=== PATIENT | male | born 1950 | race Caucasian/White ===

== ENCOUNTER 2021-02-19 11:57 | Inpatient (IN) ==
[2021-02-19 12:31] LABS: Hematocrit 37 % (42-52); Mean Corpuscular HGB Conc 33 g/dL (31-36); Mean Corpuscular Hemoglobin 31 pg (27-31); Mean Corpuscular Volume 94 fL (80-94); Mean Platelet Volume 7.4 fL (7.4-10.4); Platelet Count 405 10^3/uL (150-450); Red Blood Count 3.89 10^6 /uL (4.18-5.48); Red Cell Distribution Width 14 % (10-15); White Blood Count 23.2 10^3/uL (3.5-10.8)
[2021-02-19] MEDS ORDERED: Azithromycin 500 mg/250 ml NS 500 MG/250 ML BAG IVPB ONE (12:35)
[2021-02-19] MEDS ORDERED: cefTRIAXone 1 gm/50 mL NS BAG 1 GM/50 ML BAG IV ONE (12:35)
[2021-02-19] MEDS ORDERED: NS 0.9% 1000 ml BAG 1,000 ML IV ONE (12:36)
[2021-02-19 12:38] LABS: ABS Basophils 0.1 10^3/ul (0-0.2); ABS Lymphocytes 0.7 10^3/ul (1.0-4.8); ABS Monocytes 1.1 10^3/ul (0-0.8); ABS Neutrophils 21.3 10^3/ul (1.5-7.7); Eosinophil % 0.1 %; Lymphocyte % 2.9 %
[2021-02-19 12:43] LABS: INR 1.26 (0.82-1.09)
[2021-02-19 12:49] LABS: ALT 14 U/L (7-52); Albumin 3.3 g/dL (3.2-5.2); Alkaline Phosphatase 70 U/L (34-104); Blood Urea Nitrogen 27 mg/dL (6-24); C Reactive Protein 38.82 mg/L (<8.01); CO2 Carbon Dioxide 24 mmol/L (22-32); Calcium 8.3 mg/dL (8.6-10.3); Chloride 105 mmol/L (101-111); EGFR African American 76.8 (>60); EGFR Non-African American 63.5 (>60); Globulin 3.4 g/dL (2-4); Glucose 151 mg/dL (70-100); Sodium 135 mmol/L (135-145); Total Protein 6.7 g/dL (6.4-8.9)
[2021-02-19 12:51] LABS: Troponin I 0.17 ng/mL (<0.03)
[2021-02-19 13:14] LABS: Anion Gap 6 mmol/L (2-11)
[2021-02-19] MEDS ORDERED: Albuterol HFA INHALER 8 gm MDI INH SCH (16:00)
[2021-02-19] MEDS: LATANOPROST 0.005% BOTH EYES SCH (16:56)
[2021-02-19] MEDS: Enoxaparin 40 MG/0.4 ML SYR SUBCUT SCH (16:56)
[2021-02-19 16:58] LABS: Troponin I 0.22 ng/mL (<0.03)
[2021-02-19 17:32] LABS: AST Redraw 12 U/L (13-39); Potassium Redraw 4.3 mmol/L (3.5-5.0)
[2021-02-19] MEDS: Albuterol HFA INHALER 8 gm MDI INH SCH (19:11)
[2021-02-19 20:17] LABS: Troponin I 0.18 ng/mL (<0.03)
[2021-02-19] MEDS: Venlafaxine XR 75 mg PO SCH (21:36)
[2021-02-19] MEDS: Fluticasone NASAL SPRAY 50MCG 16 gm SPRAY BTL INTRANASAL SCH (21:38)
[2021-02-19 22:57] LABS: Troponin I 0.16 ng/mL (<0.03)
[2021-02-20 01:20] LABS: Urine Appearance Clear; Urine Bilirubin Negative (Negative); Urine Blood Negative (Negative); Urine Color Yellow; Urine Glucose Negative (Negative); Urine Ketones Negative (Negative); Urine Nitrite Negative (Negative); Urine Protein Negative (Negative); Urine Specific Gravity 1.028 (1.002-1.030); Urine Urobilinogen Negative (Negative)
[2021-02-20 06:29] LABS: ABS Basophils 0.1 10^3/ul (0-0.2); ABS Eosinophils 0.5 10^3/ul (0-0.6); ABS Lymphocytes 1.3 10^3/ul (1.0-4.8); ABS Neutrophils 11.5 10^3/ul (1.5-7.7); Eosinophil % 3.4 %; Hematocrit 34 % (42-52); Hemoglobin 11.2 g/dL (14.0-18.0); Lymphocyte % 9.2 %; Mean Corpuscular HGB Conc 33 g/dL (31-36); Mean Corpuscular Hemoglobin 31 pg (27-31); Mean Corpuscular Volume 95 fL (80-94); Mean Platelet Volume 7.9 fL (7.4-10.4); Platelet Count 353 10^3/uL (150-450); Red Blood Count 3.61 10^6 /uL (4.18-5.48); Red Cell Distribution Width 14 % (10-15); White Blood Count 14.4 10^3/uL (3.5-10.8)
[2021-02-20] MEDS: Albuterol HFA INHALER 8 gm MDI INH SCH ×2 (06:34→07:52)
[2021-02-20 06:51] LABS: Albumin 3.2 g/dL (3.2-5.2); Calcium 8.4 mg/dL (8.6-10.3); EGFR Non-African American 79.3 (>60); Globulin 3.1 g/dL (2-4); Potassium 4.1 mmol/L (3.5-5.0); Total Bilirubin 0.5 mg/dL (0.2-1.0); Total Protein 6.3 g/dL (6.4-8.9)
[2021-02-20] MEDS ORDERED: Albuterol HFA INHALER 8 gm MDI INH PRN (07:56)
[2021-02-20] MEDS: Aspirin EC 81 mg TAB.EC (enteric coated) PO SCH (08:30)
[2021-02-20] MEDS: Fluticasone NASAL SPRAY 50MCG 16 gm SPRAY BTL INTRANASAL SCH ×2 (08:30→20:36)
[2021-02-20] MEDS: Venlafaxine XR 75 mg PO SCH ×2 (08:30→20:35)
[2021-02-20] MEDS: cefTRIAXone 1 gm/50 mL NS BAG 1 GM/50 ML BAG IVPB SCH (13:19)
[2021-02-20] MEDS: Enoxaparin 40 MG/0.4 ML SYR SUBCUT SCH (16:40)
[2021-02-20] MEDS: LATANOPROST 0.005% BOTH EYES SCH (16:40)
[2021-02-21 07:23] LABS: ABS Basophils 0.1 10^3/ul (0-0.2); ABS Eosinophils 0.8 10^3/ul (0-0.6); ABS Monocytes 0.8 10^3/ul (0-0.8); ABS Neutrophils 6.6 10^3/ul (1.5-7.7); Eosinophil % 8.6 %; Hematocrit 32 % (42-52); Hemoglobin 11.1 g/dL (14.0-18.0); Lymphocyte % 11.3 %; Mean Corpuscular HGB Conc 34 g/dL (31-36); Mean Corpuscular Hemoglobin 32 pg (27-31); Mean Corpuscular Volume 93 fL (80-94); Mean Platelet Volume 7.6 fL (7.4-10.4); Platelet Count 338 10^3/uL (150-450); Red Blood Count 3.48 10^6 /uL (4.18-5.48); Red Cell Distribution Width 14 % (10-15); White Blood Count 9.3 10^3/uL (3.5-10.8)
[2021-02-21] MEDS: Aspirin EC 81 mg TAB.EC (enteric coated) PO SCH (08:53)
[2021-02-21] MEDS: Fluticasone NASAL SPRAY 50MCG 16 gm SPRAY BTL INTRANASAL SCH ×2 (08:54→20:03)
[2021-02-21] MEDS: Venlafaxine XR 75 mg PO SCH ×2 (08:55→20:04)
[2021-02-21] MEDS ORDERED: Perflutren Lipid Microsphere 3 ML VIAL ONE (09:22)
[2021-02-21] MEDS: cefTRIAXone 1 gm/50 mL NS BAG 1 GM/50 ML BAG IVPB SCH (14:07)
[2021-02-21] MEDS: Enoxaparin 40 MG/0.4 ML SYR SUBCUT SCH (17:46)
[2021-02-21] MEDS: LATANOPROST 0.005% BOTH EYES SCH (17:47)
[2021-02-22 08:06] VITALS: BP 154/63
[2021-02-22] MEDS: Venlafaxine XR 75 mg PO SCH (09:54)
[2021-02-22] MEDS: Aspirin EC 81 mg TAB.EC (enteric coated) PO SCH (09:54)
[2021-02-22] MEDS: Fluticasone NASAL SPRAY 50MCG 16 gm SPRAY BTL INTRANASAL SCH (09:55)
== END 2021-02-22 12:35 | disposition home or self-care (01) | DRG 720 ==
LOC: ED 11:57 → MED 15:21
PROVIDERS: ADMIT Internal Medicine; ATTEND Internal Medicine

== ENCOUNTER 2021-10-02 13:54 | Inpatient (IN) ==
[2021-10-02 15:04] LABS: Venous Bicarbonate HCO3 26.9 mmol/L (24-28)
[2021-10-02 15:09] LABS: ABS Lymphocytes 0.3 10^3/ul (1.0-4.8); ABS Monocytes 0.4 10^3/ul (0-0.8); ABS Neutrophils 10.3 10^3/ul (1.5-7.7); Eosinophil % 0.4 %; Hematocrit 34 % (42-52); Hemoglobin 11.4 g/dL (14.0-18.0); Lymphocyte % 2.4 %; Mean Corpuscular HGB Conc 33 g/dL (31-36); Mean Corpuscular Hemoglobin 31 pg (27-31); Mean Corpuscular Volume 93 fL (80-94); Mean Platelet Volume 7.4 fL (7.4-10.4); Platelet Count 269 10^3/uL (150-450); Red Blood Count 3.68 10^6 /uL (4.18-5.48); Red Cell Distribution Width 14 % (10-15); White Blood Count 11.1 10^3/uL (3.5-10.8)
[2021-10-02 15:19] LABS: Activated Partial Thrombo Time 38.2 seconds (26.0-38.0); INR 1.25 (0.86-1.15)
[2021-10-02 15:33] LABS: Troponin I 0.01 ng/mL (<0.03)
[2021-10-02] MEDS ORDERED: Dexamethasone IV 4 MG/ML VIAL 1 ml VIAL IV SLOW PU ONE (15:37)
[2021-10-02 15:38] LABS: Albumin 3.5 g/dL (3.2-5.2); Albumin/Globulin Ratio 1.2 (1-3); C Reactive Protein 51.93 mg/L (<8.01); Calcium 8.3 mg/dL (8.6-10.3); Potassium 3.3 mmol/L (3.5-5.0); Total Bilirubin 0.9 mg/dL (0.2-1.0); Total Protein 6.5 g/dL (6.4-8.9); eGFR CKD-EPI 61.6 (>60)
[2021-10-02] MEDS ORDERED: Iohexol 350 (CONTRAST) 500 ML MDV IV ONE ×2 (16:22→17:43)
[2021-10-02 16:33] LABS: Ferritin 65.6 ng/mL (24-336)
[2021-10-02] MEDS ORDERED: Furosemide 20 mg/2 ml IV VIAL IV SLOW PU ONE (18:46)
[2021-10-02] MEDS ORDERED: Remdesivir 100 mg Vial 200 MG in NS 0.9% 250 ml 210 ML IV ONE (19:26)
[2021-10-02] MEDS: Potassium Chlor 20 meq TAB.ER PO SCH ×2 (19:27→23:14)
[2021-10-02] MEDS ORDERED: Albuterol HFA INHALER 8 gm MDI INH PRN (19:27)
[2021-10-02] MEDS ORDERED: Venlafaxine XR 75 mg PO SCH (21:30)
[2021-10-02] MEDS: Enoxaparin 40 MG/0.4 ML SYR SUBCUT SCH (21:45)
[2021-10-02 22:54] LABS: Troponin I 0.03 ng/mL (<0.03)
[2021-10-03] MEDS: Potassium Chlor 20 meq TAB.ER PO SCH (03:31)
[2021-10-03 06:19] LABS: ABS Basophils 0.1 10^3/ul (0-0.2); ABS Lymphocytes 0.6 10^3/ul (1.0-4.8); ABS Monocytes 0.6 10^3/ul (0-0.8); ABS Neutrophils 14.7 10^3/ul (1.5-7.7); Hematocrit 34 % (42-52); Hemoglobin 11.4 g/dL (14.0-18.0); Mean Corpuscular HGB Conc 34 g/dL (31-36); Mean Corpuscular Hemoglobin 32 pg (27-31); Mean Corpuscular Volume 94 fL (80-94); Mean Platelet Volume 7.6 fL (7.4-10.4); Platelet Count 274 10^3/uL (150-450); Red Blood Count 3.61 10^6 /uL (4.18-5.48); Red Cell Distribution Width 14 % (10-15)
[2021-10-03 06:34] LABS: INR 1.42 (0.86-1.15)
[2021-10-03 06:39] LABS: Albumin 3.6 g/dL (3.2-5.2); Anion Gap 8 mmol/L (2-11); CO2 Carbon Dioxide 27 mmol/L (22-32); Calcium 8.9 mg/dL (8.6-10.3); Chloride 102 mmol/L (101-111); Potassium 3.8 mmol/L (3.5-5.0); Sodium 137 mmol/L (135-145)
[2021-10-03 06:45] LABS: ALT 12 U/L (7-52); AST 17 U/L (13-39); Albumin/Globulin Ratio 1.2 (1-3); Alkaline Phosphatase 80 U/L (35-149); Blood Urea Nitrogen 23 mg/dL (6-24); Globulin 3.1 g/dL (2-4); Glucose 113 mg/dL (70-100); Total Protein 6.7 g/dL (6.4-8.9); eGFR CKD-EPI 64.7 (>60)
[2021-10-03] MEDS: Aspirin EC 81 mg TAB.EC (enteric coated) PO SCH (09:35)
[2021-10-03 09:37] LABS: Troponin I 0.03 ng/mL (<0.03)
[2021-10-03] MEDS: Venlafaxine XR 75 mg PO SCH (09:44)
[2021-10-03] MEDS: Dexamethasone IV 4 MG/ML VIAL 1 ml VIAL IV SLOW PU SCH (09:45)
[2021-10-03 10:49] LABS: Troponin I 0.03 ng/mL (<0.03)
[2021-10-03] MEDS: Ondansetron 4 mg VIAL 2 MG/ML 2 ml VIAL IV PRN ×2 (13:55→20:36)
[2021-10-03] MEDS: Enoxaparin 40 MG/0.4 ML SYR SUBCUT SCH (20:34)
[2021-10-03] MEDS: Remdesivir 100 mg Vial 100 MG in NS 0.9% 250 ml 230 ML IV SCH (20:36)
[2021-10-04 06:34] LABS: ABS Lymphocytes 0.8 10^3/ul (1.0-4.8); ABS Monocytes 0.7 10^3/ul (0-0.8); ABS Neutrophils 8.7 10^3/ul (1.5-7.7); Hematocrit 34 % (42-52); Hemoglobin 11.5 g/dL (14.0-18.0); Lymphocyte % 7.6 %; Mean Corpuscular HGB Conc 34 g/dL (31-36); Mean Corpuscular Hemoglobin 32 pg (27-31); Mean Corpuscular Volume 94 fL (80-94); Mean Platelet Volume 7.6 fL (7.4-10.4); Platelet Count 301 10^3/uL (150-450); Red Cell Distribution Width 14 % (10-15); White Blood Count 10.1 10^3/uL (3.5-10.8)
[2021-10-04 06:47] LABS: INR 1.27 (0.86-1.15)
[2021-10-04 06:51] LABS: Albumin 3.5 g/dL (3.2-5.2); Albumin/Globulin Ratio 1.1 (1-3); Calcium 8.8 mg/dL (8.6-10.3); Globulin 3.2 g/dL (2-4); Potassium 3.6 mmol/L (3.5-5.0); Total Protein 6.7 g/dL (6.4-8.9); eGFR CKD-EPI 60.4 (>60)
[2021-10-04] MEDS: Venlafaxine XR 75 mg PO SCH (09:06)
[2021-10-04] MEDS: Aspirin EC 81 mg TAB.EC (enteric coated) PO SCH (09:07)
[2021-10-04] MEDS: Dexamethasone IV 4 MG/ML VIAL 1 ml VIAL IV SLOW PU SCH (09:10)
[2021-10-04] MEDS: Enoxaparin 40 MG/0.4 ML SYR SUBCUT SCH (21:54)
[2021-10-04] MEDS: Remdesivir 100 mg Vial 100 MG in NS 0.9% 250 ml 230 ML IV SCH (21:58)
[2021-10-05 07:45] VITALS: BP 138/62
[2021-10-05] MEDS: Dexamethasone IV 4 MG/ML VIAL 1 ml VIAL IV SLOW PU SCH (09:31)
[2021-10-05] MEDS: Aspirin EC 81 mg TAB.EC (enteric coated) PO SCH (09:33)
[2021-10-05] MEDS: Venlafaxine XR 75 mg PO SCH (09:33)
== END 2021-10-05 11:20 | disposition home or self-care (01) | DRG 137 ==
LOC: ED 13:54 → EDHOLD 18:47 → SUATTDRO 18:47 → MED 21:43
PROVIDERS: ADMIT Hospitalist; ATTEND Student in an Organized Health Care Education/Training Program

== ENCOUNTER 2023-02-10 13:59 | Inpatient (IN) ==
[2023-02-10] MEDS ORDERED: NS 0.9% 1000 ml BAG 1,000 ML IV ONE ×2 (16:19)
[2023-02-10 16:38] LABS: ABS Basophils 0.1 10^3/uL (0.0-0.1); ABS Eosinophils 0.1 10^3/uL (0.0-0.5); ABS Lymphocytes 1.1 10^3/uL (1.0-4.8); ABS Monocytes 0.6 10^3/uL (0.0-1.1); ABS Neutrophils 9.3 10^3/uL (1.5-7.6); ABS Nucleated RBC 0.02 10^3/ul; Eosinophil % 1.2 %; Hematocrit 25.5 % (38-53); Hemoglobin 8.4 g/dL (13.2-16.3); Lymphocyte % 10.1 %; Mean Corpuscular Hemoglobin 33.6 pg (27-33); Mean Corpuscular Hgb Conc 32.8 g/dL (31-36); Mean Corpuscular Volume 102.5 fL (80-97); Mean Platelet Volume 7.3 fL (7.5-11.2); Nucleated Red Blood Cells % 0.1 /100 WBC (0.0-0.4); Platelet Count 418 10^3/uL (150-450); Red Blood Count 2.49 10^6/uL (4.06-5.63); Red Cell Distribution Width 18.3 % (12-17); White Blood Count 11.3 10^3/uL (3.6-10.2)
[2023-02-10 17:47] LABS: Albumin 2.6 g/dL (3.2-5.2); Albumin/Globulin Ratio 0.9 (1-3); Calcium 8.2 mg/dL (8.6-10.3); Creatinine, Serum 0.87 mg/dL (0.67-1.17); Total Bilirubin 0.7 mg/dL (0.2-1.0); Total Protein 5.6 g/dL (6.4-8.9); eGFR CKD-EPI 91.7 (>60)
[2023-02-10] MEDS ORDERED: Morphine 4 MG/ML VIAL (1 ml) IV ONE ×2 (18:25→19:43)
[2023-02-10 18:32] LABS: Urine Appearance Cloudy; Urine Bilirubin Negative (Negative); Urine Blood Negative (Negative); Urine Color Yellow; Urine Glucose Negative (Negative); Urine Ketones Negative (Negative); Urine Nitrite Positive (Negative); Urine Protein Negative (Negative); Urine Specific Gravity 1.016 (1.002-1.030); Urine Urobilinogen Negative (Negative)
[2023-02-10 18:38] LABS: Urine Bacteria 3+ (Absent); Urine Red Blood Cell 1+(3-5/hpf) (Absent); Urine Squamous Epithelial Cell Present (Absent); Urine White Blood Cell 3+(>20/hpf) (Absent)
[2023-02-10] MEDS ORDERED: cefTRIAXone 1 gm/50 mL D5W 1 GM/50 ML BAG IV ONE (19:43)
[2023-02-10] MEDS ORDERED: Albuterol HFA INHALER 8 gm MDI INH PRN (22:13)
[2023-02-10] MEDS ORDERED: Ondansetron ODT 4 mg TAB 4 MG TAB PO PRN (22:28)
[2023-02-10] MEDS ORDERED: Polyethylene Glycol 3350 17 GM PACKET PO PRN (22:30)
[2023-02-10] MEDS ORDERED: ZOLMitriptan 5 mg ODT (NF) PO PRN (22:34)
[2023-02-10] MEDS: oxyCODONE/Acetamin 5/325 mg TAB PO PRN (23:18)
[2023-02-10] MEDS: Enoxaparin 100 MG/ML SYR SUBCUT SCH (23:20)
[2023-02-11 07:11] LABS: ABS Eosinophils 0.4 10^3/uL (0.0-0.5); ABS Lymphocytes 1.2 10^3/uL (1.0-4.8); ABS Monocytes 0.5 10^3/uL (0.0-1.1); ABS Neutrophils 5.7 10^3/uL (1.5-7.6); ABS Nucleated RBC 0.01 10^3/ul; Eosinophil % 4.5 %; Hematocrit 19.6 % (38-53); Hemoglobin 6.5 g/dL (13.2-16.3); Lymphocyte % 15.9 %; Mean Corpuscular Hemoglobin 34.1 pg (27-33); Mean Corpuscular Hgb Conc 33.1 g/dL (31-36); Mean Platelet Volume 7.3 fL (7.5-11.2); Nucleated Red Blood Cells % 0.2 /100 WBC (0.0-0.4); Platelet Count 305 10^3/uL (150-450); Red Blood Count 1.91 10^6/uL (4.06-5.63); Red Cell Distribution Width 18.4 % (12-17); White Blood Count 7.9 10^3/uL (3.6-10.2)
[2023-02-11 07:55] LABS: Anion Gap 3 mmol/L (2-16); Blood Urea Nitrogen 23 mg/dL (6-24); CO2 Carbon Dioxide 24 mmol/L (22-32); Calcium 7.7 mg/dL (8.6-10.3); Chloride 112 mmol/L (101-111); Creatinine, Serum 0.91 mg/dL (0.67-1.17); Glucose 90 mg/dL (70-100); Magnesium 1.8 mg/dL (1.9-2.7); Potassium 4.4 mmol/L (3.5-5.0); Sodium 139 mmol/L (135-145); eGFR CKD-EPI 89.5 (>60)
[2023-02-11] MEDS: Venlafaxine XR 75 mg PO SCH (08:53)
[2023-02-11] MEDS: Aspirin EC 81 mg TAB.EC (enteric coated) PO SCH (08:54)
[2023-02-11] MEDS: Enoxaparin 100 MG/ML SYR SUBCUT SCH (08:54)
[2023-02-11] MEDS ORDERED: Magnesium Sulfate IV 3 GM in NS 0.9% 100 ml BAG 100 ML IVPB ONE (09:15)
[2023-02-11 10:06] LABS: % Iron Saturation 19 % (15-55); .Transferrin < 75 mg/dL (203-362); Iron < 20 ug/dL (50-212); Total Iron Binding Capacity 105 mcg/dL (250-450); Unsaturated Iron Binding 85 ug/dL
[2023-02-11 10:21] LABS: TSH Ultra Thyroid Stim Horm 1.87 mcIU/mL (0.34-5.60)
[2023-02-11 10:33] LABS: Vitamin B12 241 pg/mL (180-914)
[2023-02-11 10:36] LABS: Vitamin D Total 25(OH) 13.5 ng/mL (20-50)
[2023-02-11 11:03] LABS: Hematocrit 17.6 % (38-53); Mean Corpuscular Hemoglobin 33.8 pg (27-33); Mean Corpuscular Hgb Conc 33.8 g/dL (31-36); Mean Corpuscular Volume 100.1 fL (80-97); Mean Platelet Volume 7.2 fL (7.5-11.2); Platelet Count 300 10^3/uL (150-450); Red Blood Count 1.76 10^6/uL (4.06-5.63); Red Cell Distribution Width 18.1 % (12-17); White Blood Count 8.5 10^3/uL (3.6-10.2)
[2023-02-11] MEDS: oxyCODONE/Acetamin 5/325 mg TAB PO PRN ×3 (11:16→22:34)
[2023-02-11] MEDS ORDERED: Iodixanol (CONTRAST) 320 MG/ML 100 ML SDV IV ONE (12:08)
[2023-02-11 13:17] LABS: ABS Basophils 0.1 10^3/uL (0.0-0.1); ABS Eosinophils 0.3 10^3/uL (0.0-0.5); ABS Lymphocytes 0.6 10^3/uL (1.0-4.8); ABS Monocytes 0.5 10^3/uL (0.0-1.1); Lymphocyte % 6.9 %
[2023-02-11 18:34] LABS: ABS Basophils 0.1 10^3/uL (0.0-0.1); ABS Eosinophils 0.1 10^3/uL (0.0-0.5); ABS Lymphocytes 0.9 10^3/uL (1.0-4.8); ABS Monocytes 0.4 10^3/uL (0.0-1.1); ABS Neutrophils 8.5 10^3/uL (1.5-7.6); ABS Nucleated RBC 0.01 10^3/ul; Eosinophil % 1.5 %; Hematocrit 26.2 % (38-53); Hemoglobin 8.7 g/dL (13.2-16.3); Lymphocyte % 8.9 %; Mean Corpuscular Hemoglobin 32.7 pg (27-33); Mean Corpuscular Hgb Conc 33.3 g/dL (31-36); Mean Corpuscular Volume 98.1 fL (80-97); Mean Platelet Volume 7.4 fL (7.5-11.2); Nucleated Red Blood Cells % 0.1 /100 WBC (0.0-0.4); Platelet Count 309 10^3/uL (150-450); Red Blood Count 2.67 10^6/uL (4.06-5.63); Red Cell Distribution Width 18.3 % (12-17)
[2023-02-11 18:44] LABS: Activated Partial Thrombo Time 38.6 seconds (26.0-38.0); INR 1.23 (0.88-1.18)
[2023-02-11 20:03] LABS: Ferritin 273.1 ng/mL (24-336)
[2023-02-11 20:07] LABS: Folate 3.61 ng/mL (5.90-24.80)
[2023-02-11] MEDS: cefTRIAXone 1 gm/50 mL D5W 1 GM/50 ML BAG IV SCH (22:31)
[2023-02-12 00:27] LABS: Hematocrit 25.7 % (38-53); Hemoglobin 8.7 g/dL (13.2-16.3)
[2023-02-12] MEDS: Latanoprost 0.005% 2.5 ml BTL BOTH EYES SCH ×2 (00:30→23:09)
[2023-02-12] MEDS: oxyCODONE/Acetamin 5/325 mg TAB PO PRN ×2 (05:01→09:35)
[2023-02-12 05:26] LABS: ABS Basophils 0.1 10^3/uL (0.0-0.1); ABS Eosinophils 0.5 10^3/uL (0.0-0.5); ABS Lymphocytes 1.2 10^3/uL (1.0-4.8); ABS Monocytes 0.6 10^3/uL (0.0-1.1); ABS Neutrophils 5.8 10^3/uL (1.5-7.6); ABS Nucleated RBC 0.01 10^3/ul; Eosinophil % 6.2 %; Hematocrit 25.2 % (38-53); Hemoglobin 8.4 g/dL (13.2-16.3); Mean Corpuscular Hemoglobin 32.9 pg (27-33); Mean Corpuscular Hgb Conc 33.5 g/dL (31-36); Mean Corpuscular Volume 98.1 fL (80-97); Mean Platelet Volume 7.4 fL (7.5-11.2); Nucleated Red Blood Cells % 0.2 /100 WBC (0.0-0.4); Platelet Count 313 10^3/uL (150-450); Red Blood Count 2.56 10^6/uL (4.06-5.63); Red Cell Distribution Width 18.6 % (12-17); White Blood Count 8.3 10^3/uL (3.6-10.2)
[2023-02-12 06:01] LABS: Creatinine, Serum 0.83 mg/dL (0.67-1.17); Potassium 4.3 mmol/L (3.5-5.0)
[2023-02-12] MEDS: Aspirin EC 81 mg TAB.EC (enteric coated) PO SCH (08:28)
[2023-02-12] MEDS: Venlafaxine XR 75 mg PO SCH (08:28)
[2023-02-12] MEDS ORDERED: HYDROmorphone 1 MG/1 ML SYRINGE IV SLOW PU PRN (12:47)
[2023-02-12] MEDS ORDERED: Lactated Ringers 1000 ml BAG 1,000 ML IV ONE (14:08)
[2023-02-12] MEDS ORDERED: HYDROmorphone 0.5 MG/0.5 ML SYRINGE IV SLOW PU PRN (14:14)
[2023-02-12] MEDS ORDERED: Hydrocortisone INJ 100 MG/2ML 2 ML VIAL IV SCH (17:00)
[2023-02-12] MEDS: cefTRIAXone 1 gm/50 mL D5W 1 GM/50 ML BAG IV SCH (23:04)
[2023-02-13] MEDS: Hydrocortisone INJ 100 MG VIAL IV SCH ×3 (00:04→17:39)
[2023-02-13 08:35] LABS: ABS Eosinophils 0.1 10^3/uL (0.0-0.5); ABS Lymphocytes 0.8 10^3/uL (1.0-4.8); ABS Monocytes 0.5 10^3/uL (0.0-1.1); ABS Neutrophils 6.6 10^3/uL (1.5-7.6); ABS Nucleated RBC 0.01 10^3/ul; Eosinophil % 0.7 %; Hematocrit 27.4 % (38-53); Hemoglobin 9.3 g/dL (13.2-16.3); Lymphocyte % 10.2 %; Mean Corpuscular Hemoglobin 33.6 pg (27-33); Mean Corpuscular Hgb Conc 33.9 g/dL (31-36); Mean Corpuscular Volume 99.2 fL (80-97); Mean Platelet Volume 7.5 fL (7.5-11.2); Nucleated Red Blood Cells % 0.1 /100 WBC (0.0-0.4); Platelet Count 363 10^3/uL (150-450); Red Blood Count 2.76 10^6/uL (4.06-5.63); Red Cell Distribution Width 18.3 % (12-17); White Blood Count 8.1 10^3/uL (3.6-10.2)
[2023-02-13] MEDS: Aspirin EC 81 mg TAB.EC (enteric coated) PO SCH (09:30)
[2023-02-13] MEDS: Venlafaxine XR 75 mg PO SCH (09:36)
[2023-02-13] MEDS: cefTRIAXone 1 gm/50 mL D5W 1 GM/50 ML BAG IV SCH (19:40)
[2023-02-13] MEDS: Latanoprost 0.005% 2.5 ml BTL BOTH EYES SCH (22:21)
[2023-02-13] MEDS ORDERED: Calcium Carb (TUMS) 500 mg CHEW TAB PO ONE (23:24)
[2023-02-14] MEDS: Hydrocortisone INJ 100 MG VIAL IV SCH ×4 (00:06→23:43)
[2023-02-14 06:10] LABS: ABS Lymphocytes 0.6 10^3/uL (1.0-4.8); ABS Monocytes 0.7 10^3/uL (0.0-1.1); ABS Neutrophils 7.9 10^3/uL (1.5-7.6); Eosinophil % 0.1 %; Hemoglobin 9.6 g/dL (13.2-16.3); Lymphocyte % 6.8 %; Mean Corpuscular Hgb Conc 34.2 g/dL (31-36); Mean Corpuscular Volume 99.4 fL (80-97); Mean Platelet Volume 7.5 fL (7.5-11.2); Platelet Count 366 10^3/uL (150-450); Red Blood Count 2.82 10^6/uL (4.06-5.63); Red Cell Distribution Width 18.2 % (12-17); White Blood Count 9.3 10^3/uL (3.6-10.2)
[2023-02-14] MEDS: Aspirin EC 81 mg TAB.EC (enteric coated) PO SCH (08:23)
[2023-02-14] MEDS: Venlafaxine XR 75 mg PO SCH (08:23)
[2023-02-14] MEDS: cefTRIAXone 1 gm/50 mL D5W 1 GM/50 ML BAG IV SCH (21:15)
[2023-02-14] MEDS: Latanoprost 0.005% 2.5 ml BTL BOTH EYES SCH (23:43)
[2023-02-15 05:40] LABS: ABS Lymphocytes 0.7 10^3/uL (1.0-4.8); ABS Monocytes 0.5 10^3/uL (0.0-1.1); ABS Neutrophils 5.6 10^3/uL (1.5-7.6); Eosinophil % 0.1 %; Hematocrit 27.4 % (38-53); Hemoglobin 9.4 g/dL (13.2-16.3); Mean Corpuscular Hemoglobin 33.6 pg (27-33); Mean Corpuscular Hgb Conc 34.3 g/dL (31-36); Mean Corpuscular Volume 97.9 fL (80-97); Mean Platelet Volume 7.2 fL (7.5-11.2); Platelet Count 359 10^3/uL (150-450); White Blood Count 6.8 10^3/uL (3.6-10.2)
[2023-02-15 06:01] LABS: Calcium 8.1 mg/dL (8.6-10.3); Creatinine, Serum 0.64 mg/dL (0.67-1.17); Potassium 4.2 mmol/L (3.5-5.0); eGFR CKD-EPI 100.6 (>60)
[2023-02-15] MEDS: Venlafaxine XR 75 mg PO SCH (08:44)
[2023-02-15] MEDS: Aspirin EC 81 mg TAB.EC (enteric coated) PO SCH (08:44)
[2023-02-15] MEDS: Hydrocortisone INJ 100 MG VIAL IV SCH ×2 (08:44→17:13)
[2023-02-15] MEDS: cefTRIAXone 1 gm/50 mL D5W 1 GM/50 ML BAG IV SCH (21:47)
[2023-02-15] MEDS: Latanoprost 0.005% 2.5 ml BTL BOTH EYES SCH (21:51)
[2023-02-16] MEDS: Hydrocortisone INJ 100 MG VIAL IV SCH ×4 (00:32→23:30)
[2023-02-16 06:01] LABS: ABS Basophils 0.1 10^3/uL (0.0-0.1); ABS Lymphocytes 0.7 10^3/uL (1.0-4.8); ABS Monocytes 0.5 10^3/uL (0.0-1.1); ABS Neutrophils 6.1 10^3/uL (1.5-7.6); ABS Nucleated RBC 0.01 10^3/ul; Eosinophil % 0.2 %; Hematocrit 29.4 % (38-53); Hemoglobin 10.1 g/dL (13.2-16.3); Lymphocyte % 9.7 %; Mean Corpuscular Hemoglobin 33.7 pg (27-33); Mean Corpuscular Hgb Conc 34.3 g/dL (31-36); Mean Corpuscular Volume 98.4 fL (80-97); Mean Platelet Volume 7.2 fL (7.5-11.2); Nucleated Red Blood Cells % 0.1 /100 WBC (0.0-0.4); Platelet Count 391 10^3/uL (150-450); Red Blood Count 2.99 10^6/uL (4.06-5.63); Red Cell Distribution Width 17.8 % (12-17); White Blood Count 7.4 10^3/uL (3.6-10.2)
[2023-02-16 06:23] LABS: Calcium 8.4 mg/dL (8.6-10.3); Creatinine, Serum 0.63 mg/dL (0.67-1.17); Potassium 4.2 mmol/L (3.5-5.0); eGFR CKD-EPI 101.1 (>60)
[2023-02-16] MEDS: Venlafaxine XR 75 mg PO SCH (08:03)
[2023-02-16] MEDS: Aspirin EC 81 mg TAB.EC (enteric coated) PO SCH (08:04)
[2023-02-16] MEDS ORDERED: Magnesium Hydroxide LIQ 30 ML UDC PO PRN (08:26)
[2023-02-16] MEDS: Enoxaparin 100 MG/ML SYR SUBCUT SCH (14:00)
[2023-02-16] MEDS: Latanoprost 0.005% 2.5 ml BTL BOTH EYES SCH (21:05)
[2023-02-17] MEDS: Enoxaparin 100 MG/ML SYR SUBCUT SCH ×2 (05:34→18:36)
[2023-02-17 06:20] LABS: ABS Lymphocytes 0.9 10^3/uL (1.0-4.8); ABS Monocytes 0.6 10^3/uL (0.0-1.1); ABS Neutrophils 7.1 10^3/uL (1.5-7.6); Eosinophil % 0.2 %; Hematocrit 29.4 % (38-53); Hemoglobin 9.9 g/dL (13.2-16.3); Lymphocyte % 10.4 %; Mean Corpuscular Hemoglobin 33.8 pg (27-33); Mean Corpuscular Hgb Conc 33.7 g/dL (31-36); Mean Corpuscular Volume 100.6 fL (80-97); Mean Platelet Volume 7.1 fL (7.5-11.2); Platelet Count 390 10^3/uL (150-450); Red Blood Count 2.93 10^6/uL (4.06-5.63); Red Cell Distribution Width 18.1 % (12-17); White Blood Count 8.8 10^3/uL (3.6-10.2)
[2023-02-17 06:50] LABS: Calcium 8.4 mg/dL (8.6-10.3); Creatinine, Serum 0.63 mg/dL (0.67-1.17); Potassium 4.4 mmol/L (3.5-5.0); eGFR CKD-EPI 101.1 (>60)
[2023-02-17] MEDS: Venlafaxine XR 75 mg PO SCH (09:04)
[2023-02-17] MEDS: Aspirin EC 81 mg TAB.EC (enteric coated) PO SCH (09:05)
[2023-02-17] MEDS: Polyethylene Glycol 3350 17 GM PACKET PO SCH (09:06)
[2023-02-17] MEDS: Hydrocortisone INJ 100 MG VIAL IV SCH ×2 (09:07→16:17)
[2023-02-17] MEDS ORDERED: Lactated Ringers 1000 ml BAG 1,000 ML IV ONE (17:01)
[2023-02-17] MEDS: Latanoprost 0.005% 2.5 ml BTL BOTH EYES SCH (20:43)
[2023-02-18] MEDS: Hydrocortisone INJ 100 MG VIAL IV SCH (02:03)
[2023-02-18] MEDS: Enoxaparin 100 MG/ML SYR SUBCUT SCH ×2 (05:42→17:56)
[2023-02-18 06:23] LABS: ABS Eosinophils 0.1 10^3/uL (0.0-0.5); ABS Lymphocytes 0.7 10^3/uL (1.0-4.8); ABS Monocytes 0.3 10^3/uL (0.0-1.1); ABS Neutrophils 8.1 10^3/uL (1.5-7.6); ABS Nucleated RBC 0.02 10^3/ul; Eosinophil % 0.6 %; Hematocrit 29.2 % (38-53); Hemoglobin 9.8 g/dL (13.2-16.3); Lymphocyte % 7.7 %; Mean Corpuscular Hemoglobin 33.5 pg (27-33); Mean Corpuscular Hgb Conc 33.4 g/dL (31-36); Mean Corpuscular Volume 100.4 fL (80-97); Mean Platelet Volume 7.5 fL (7.5-11.2); Nucleated Red Blood Cells % 0.2 /100 WBC (0.0-0.4); Platelet Count 376 10^3/uL (150-450); Red Blood Count 2.91 10^6/uL (4.06-5.63); Red Cell Distribution Width 18.4 % (12-17); White Blood Count 9.2 10^3/uL (3.6-10.2)
[2023-02-18 06:46] LABS: Calcium 8.1 mg/dL (8.6-10.3); Creatinine, Serum 0.66 mg/dL (0.67-1.17); Potassium 3.9 mmol/L (3.5-5.0); eGFR CKD-EPI 99.7 (>60)
[2023-02-18] MEDS: Aspirin EC 81 mg TAB.EC (enteric coated) PO SCH (09:02)
[2023-02-18] MEDS: Polyethylene Glycol 3350 17 GM PACKET PO SCH (09:04)
[2023-02-18] MEDS: Venlafaxine XR 75 mg PO SCH (09:04)
[2023-02-18] MEDS: Latanoprost 0.005% 2.5 ml BTL BOTH EYES SCH (19:42)
[2023-02-19] MEDS: Enoxaparin 100 MG/ML SYR SUBCUT SCH ×2 (05:50→17:32)
[2023-02-19] MEDS: Polyethylene Glycol 3350 17 GM PACKET PO SCH (08:24)
[2023-02-19] MEDS: Aspirin EC 81 mg TAB.EC (enteric coated) PO SCH (08:25)
[2023-02-19] MEDS: Venlafaxine XR 75 mg PO SCH (08:26)
[2023-02-19] MEDS ORDERED: NS 0.9% 1000 ml BAG 1,000 ML IV ONE (18:59)
[2023-02-19] MEDS: Latanoprost 0.005% 2.5 ml BTL BOTH EYES SCH (22:06)
[2023-02-20] MEDS: Enoxaparin 100 MG/ML SYR SUBCUT SCH ×2 (05:56→16:14)
[2023-02-20 06:09] LABS: ABS Lymphocytes 0.5 10^3/uL (1.0-4.8); ABS Monocytes 0.5 10^3/uL (0.0-1.1); ABS Neutrophils 9.1 10^3/uL (1.5-7.6); ABS Nucleated RBC 0.01 10^3/ul; Hematocrit 23.8 % (38-53); Hemoglobin 8.2 g/dL (13.2-16.3); Lymphocyte % 5.2 %; Mean Corpuscular Hemoglobin 34.8 pg (27-33); Mean Corpuscular Hgb Conc 34.5 g/dL (31-36); Mean Corpuscular Volume 100.9 fL (80-97); Mean Platelet Volume 7.5 fL (7.5-11.2); Nucleated Red Blood Cells % 0.1 /100 WBC (0.0-0.4); Platelet Count 345 10^3/uL (150-450); Red Blood Count 2.36 10^6/uL (4.06-5.63); Red Cell Distribution Width 17.5 % (12-17); White Blood Count 10.1 10^3/uL (3.6-10.2)
[2023-02-20] MEDS: Venlafaxine XR 75 mg PO SCH (10:50)
[2023-02-20] MEDS: Aspirin EC 81 mg TAB.EC (enteric coated) PO SCH (10:52)
[2023-02-20] MEDS: Polyethylene Glycol 3350 17 GM PACKET PO SCH (10:54)
[2023-02-20] MEDS: Latanoprost 0.005% 2.5 ml BTL BOTH EYES SCH (21:53)
[2023-02-21] MEDS: Enoxaparin 100 MG/ML SYR SUBCUT SCH ×2 (06:08→17:34)
[2023-02-21] MEDS: Venlafaxine XR 75 mg PO SCH (08:52)
[2023-02-21] MEDS: Aspirin EC 81 mg TAB.EC (enteric coated) PO SCH (08:53)
[2023-02-21] MEDS: Polyethylene Glycol 3350 17 GM PACKET PO SCH (08:56)
[2023-02-21] MEDS: Latanoprost 0.005% 2.5 ml BTL BOTH EYES SCH (23:34)
[2023-02-22] MEDS: Enoxaparin 100 MG/ML SYR SUBCUT SCH (05:44)
[2023-02-22 05:56] LABS: Hematocrit 22.2 % (38-53); Hemoglobin 7.5 g/dL (13.2-16.3); Mean Corpuscular Hemoglobin 34.2 pg (27-33); Mean Corpuscular Hgb Conc 33.8 g/dL (31-36); Mean Corpuscular Volume 101.2 fL (80-97); Mean Platelet Volume 7.6 fL (7.5-11.2); Platelet Count 333 10^3/uL (150-450); Red Cell Distribution Width 17.1 % (12-17); White Blood Count 8.2 10^3/uL (3.6-10.2)
[2023-02-22] MEDS: Venlafaxine XR 75 mg PO SCH (08:09)
[2023-02-22] MEDS: Aspirin EC 81 mg TAB.EC (enteric coated) PO SCH (08:09)
[2023-02-22] MEDS: Polyethylene Glycol 3350 17 GM PACKET PO SCH (08:27)
[2023-02-22 08:33] LABS: Calcium 7.8 mg/dL (8.6-10.3); Creatinine, Serum 0.69 mg/dL (0.67-1.17); Potassium 4.4 mmol/L (3.5-5.0); eGFR CKD-EPI 98.3 (>60)
[2023-02-22 08:45] LABS: Rapid COVID-19 Molecular Undetected (Undetected)
[2023-02-22 15:00] LABS: Hematocrit 23.6 % (38-53); Hemoglobin 7.9 g/dL (13.2-16.3)
[2023-02-22] MEDS: Latanoprost 0.005% 2.5 ml BTL BOTH EYES SCH (20:59)
[2023-02-22] MEDS ORDERED: NS 0.9% 500 ml BAG 500 ML IV ONE (22:38)
[2023-02-23 05:50] LABS: ABS Eosinophils 0.1 10^3/uL (0.0-0.5); ABS Lymphocytes 1.6 10^3/uL (1.0-4.8); ABS Monocytes 0.7 10^3/uL (0.0-1.1); ABS Neutrophils 4.9 10^3/uL (1.5-7.6); Eosinophil % 1.6 %; Hemoglobin 7.1 g/dL (13.2-16.3); Lymphocyte % 21.4 %; Mean Corpuscular Hgb Conc 33.8 g/dL (31-36); Mean Corpuscular Volume 100.6 fL (80-97); Mean Platelet Volume 7.4 fL (7.5-11.2); Platelet Count 331 10^3/uL (150-450); Red Blood Count 2.08 10^6/uL (4.06-5.63); Red Cell Distribution Width 17.3 % (12-17); White Blood Count 7.4 10^3/uL (3.6-10.2)
[2023-02-23] MEDS: Polyethylene Glycol 3350 17 GM PACKET PO SCH (09:54)
[2023-02-23] MEDS: Aspirin EC 81 mg TAB.EC (enteric coated) PO SCH (09:54)
[2023-02-23] MEDS: Venlafaxine XR 75 mg PO SCH (09:55)
[2023-02-23 14:30] LABS: Hematocrit 24.8 % (38-53); Hemoglobin 8.3 g/dL (13.2-16.3)
[2023-02-23] MEDS: Latanoprost 0.005% 2.5 ml BTL BOTH EYES SCH (20:38)
[2023-02-24 06:20] LABS: Hematocrit 26.4 % (38-53); Hemoglobin 8.9 g/dL (13.2-16.3); Mean Corpuscular Hemoglobin 33.8 pg (27-33); Mean Corpuscular Hgb Conc 33.7 g/dL (31-36); Mean Corpuscular Volume 100.1 fL (80-97); Mean Platelet Volume 7.5 fL (7.5-11.2); Platelet Count 390 10^3/uL (150-450); Red Blood Count 2.63 10^6/uL (4.06-5.63); Red Cell Distribution Width 17.4 % (12-17); White Blood Count 7.6 10^3/uL (3.6-10.2)
[2023-02-24 06:36] LABS: Calcium 8.6 mg/dL (8.6-10.3); Creatinine, Serum 0.69 mg/dL (0.67-1.17); Potassium 4.6 mmol/L (3.5-5.0); eGFR CKD-EPI 98.3 (>60)
[2023-02-24] MEDS: Aspirin EC 81 mg TAB.EC (enteric coated) PO SCH (10:05)
[2023-02-24] MEDS: Venlafaxine XR 75 mg PO SCH (10:05)
[2023-02-24] MEDS: Polyethylene Glycol 3350 17 GM PACKET PO SCH (10:06)
[2023-02-24] MEDS ORDERED: Iodixanol (CONTRAST) 320 MG/ML 100 ML SDV IV ONE (10:40)
[2023-02-24] MEDS: Latanoprost 0.005% 2.5 ml BTL BOTH EYES SCH (21:06)
[2023-02-24] MEDS ORDERED: Lactated Ringers 1000 ml BAG 1,000 ML IV ONE (22:18)
[2023-02-24 22:44] LABS: Hematocrit 21.4 % (38-53); Hemoglobin 7.2 g/dL (13.2-16.3)
[2023-02-25 01:06] LABS: Hematocrit 22.2 % (38-53); Hemoglobin 7.5 g/dL (13.2-16.3)
[2023-02-25] MEDS: Aspirin EC 81 mg TAB.EC (enteric coated) PO SCH (08:19)
[2023-02-25] MEDS: Venlafaxine XR 75 mg PO SCH (08:20)
[2023-02-25] MEDS: Polyethylene Glycol 3350 17 GM PACKET PO SCH (08:25)
[2023-02-25 10:17] VITALS: BP 107/63
== END 2023-02-25 12:15 | DRG 605 ==
LOC: ED 13:59 → EDHOLD 13:59 → MED 22:13 → ICU 02-11 12:28 → SUATTDRO 02-11 12:42 → MEDTELE 02-12 22:19 → MED 02-21 21:40
PROVIDERS: ADMIT Internal Medicine; ATTEND Internal Medicine